=== PATIENT | male | born 1945 | race Caucasian/White ===

== ENCOUNTER 2024-03-02 11:54 | Inpatient (IN) | payer MEDICARE, OTHER ==
[~2024-03-02] VITALS: Ht 177.8 cm; Wt 48.2 kg
[2024-03-02] MEDS ORDERED: 0.9% SODIUM CHLORIDE 10 ML SYRINGE IVP PRN (12:45)
[2024-03-02] MEDS: SODIUM CHLORIDE 0.9% 1,000 ML IV ONE (12:57)
[2024-03-02 13:11] VITALS: PULSE 94; RESP 30; O2SAT 98
[2024-03-02 13:13] LABS: ABG BASE EXCESS 0.9 mmol/L (-2.0-3.0); ABG CARBOXYHEMOGLOBIN 0.2 % (0.5-1.5); ABG HCO3 25.4 mmol/L (21.0-28.0); ABG METHEMOGLOBIN 0.8 % (0.0-1.5); ABG OXYGEN CONTENT 17.9 mL/dL (15.0-23.0); ABG PCO2 38 mmHg (32.0-48.0); ABG PH 7.437 (7.350-7.450); ABG TOTAL HEMOGLOBIN 12.9 G/dL (13.5-17.5); PO2, ARTERIAL BG 115.3 mmHg (83.0-108.0); SOURCE, BLOOD GAS ARTERIAL; TEMPERATURE, FAHRENHEIT, BG 98.5 FAHREN (96.0-98.6)
[2024-03-02 13:14] LABS: O2 DEVICE,BLOOD GAS NON REBREATHER (ROOM AIR); SITE, BLOOD GAS RT BRACHIAL
[2024-03-02 13:17] LABS: BASOPHILS % (AUTO) 0.3 % (0.0-2.0); EOSINOPHILS % (AUTO) 0.3 % (1.0-6.0); HEMOGLOBIN 12.1 g/dL (13.5-17.5); LYMPHOCYTES # (AUTO) 0.5 K/uL (1.0-4.8); LYMPHOCYTES % (AUTO) 4.7 % (22.0-44.0); MEAN CORPUSCULAR HEMOGLOBIN 29.7 pg (26.0-34.0); MEAN CORPUSCULAR HGB CONC 32.6 G/dL (31.0-37.0); MEAN CORPUSCULAR VOLUME 91 fL (80-100); MONOCYTES # (AUTO) 0.4 K/uL (0.1-1.0); MONOCYTES % (AUTO) 3.8 % (2.0-9.0); NEUTROPHILS # (AUTO) 8.9 K/uL (1.8-7.7); PLATELET COUNT (AUTO) 327 K/uL (150-450); RED BLOOD CELL COUNT(AUTO) 4.07 MIL/uL (4.50-5.90); RED CELL DISTRIBUTION WIDTH 14.5 % (11.5-14.5); WHITE BLOOD COUNT (AUTO) 9.8 K/uL (4.5-11.0)
[2024-03-02 13:28] LABS: NEUTROPHILS % (AUTO) 90.9 % (40.0-70.0)
[2024-03-02] MEDS ORDERED: FERR300L PO (13:28)
[2024-03-02] MEDS ORDERED: MIRT-92 PO (13:28)
[2024-03-02] MEDS ORDERED: METH1TAB66 PO (13:28)
[2024-03-02] MEDS ORDERED: SENN-376 PO (13:28)
[2024-03-02] MEDS ORDERED: AZIT-164 PO (13:28)
[2024-03-02] MEDS ORDERED: CARB1TAB35 PO (13:28)
[2024-03-02] MEDS ORDERED: DOCU-385 PO (13:28)
[2024-03-02] MEDS ORDERED: OLAN20TA82 PO (13:28)
[2024-03-02] MEDS ORDERED: GABA-529 PO (13:28)
[2024-03-02] MEDS ORDERED: FAMO20 PO (13:28)
[2024-03-02] MEDS ORDERED: BENZ2TAB84 PO (13:28)
[2024-03-02 13:35] LABS: LACTIC ACID 1.5 mmol/L (0.4-2.0); TROPONIN I-HIGH SENSITIVITY 4 ng/L (<76)
[2024-03-02 13:41] LABS: ANION GAP 7 mmol/L (8-16); CALCIUM, TOTAL 9.2 mg/dL (8.8-10.5); CARBON DIOXIDE 29 mmol/L (22-29); CHLORIDE 106 mmol/L (98-107); CREATININE 0.95 mg/dL (0.60-1.30); GLOMERULAR FILTR. RATE CALC > 60 mL/min (>60); GLUCOSE,RANDOM 105 mg/dL (70-110); POTASSIUM 4.2 mmol/L (3.5-5.1); SODIUM SERUM 142 mmol/L (136-145); UREA NITROGEN, BLOOD 50 mg/dL (7-18)
[2024-03-02] MEDS: CEFEPIME HCL 1 GM in DEXTROSE 5%-WATER 50 ML IV ONE (14:13)
[2024-03-02] MEDS: VANCOMYCIN 1.5 GM/WATER(PEG) 300 ML IV ONE (14:14)
[2024-03-02] MEDS ORDERED: ONDANSETRON HCL 4 MG/2 ML VIAL IVP PRN (14:30)
[2024-03-02] MEDS ORDERED: ALBUTEROL SULFATE 2.5 MG/0.5 ML NEB SOLUTION NEB PRN (14:30)
[2024-03-02] MEDS ORDERED: HYDROCODONE/ACETAMINOPHEN 5-325 MG TABLET PO PRN (14:30)
[2024-03-02] MEDS ORDERED: MAGNESIUM HYDROXIDE SUSPENSION 30 ML UDCUP PO PRN (14:30)
[2024-03-02] MEDS ORDERED: ZOLPIDEM TARTRATE 5 MG TABLET PO PRN (14:30)
[2024-03-02] MEDS ORDERED: ACETAMINOPHEN 325 MG TABLET PO PRN (14:30)
[2024-03-02] MEDS ORDERED: BISACODYL 10 MG RECTAL RECTAL SUPPOSITORY PR PRN (14:30)
[2024-03-02 14:37] LABS: B-TYPE NATRIURETIC PEPTIDE 21 pg/mL (0-100)
[2024-03-02] MEDS: *CLINICAL-LEVOFLOXACIN IVPB DOSING CLINICAL ONE (14:51)
[2024-03-02] MEDS: CLINDAMYCIN 600 MG/D5% WATER 50 ML IV SCH (15:25)
[2024-03-02] MEDS: LEVOFLOXACIN 750 MG/D5% WATER 150 ML IV SCH (15:25)
[2024-03-02] MEDS: HEPARIN SODIUM,PORCINE 5,000 UNITS/ML VIAL SQ SCH (15:36)
[2024-03-02] MEDS: CARBIDOPA/LEVODOPA 25-100 MG TABLET PO SCH (15:36)
[2024-03-02 16:50] VITALS: PULSE 98; RESP 47; O2SAT 97
[2024-03-02 17:58] LABS: COVID AG,FIA SOURCE NASAL SWAB
[2024-03-02 18:18] LABS: SARS-COV2 (COVID) ANTIGEN,FIA Negative (Negative)
[2024-03-02 18:19] LABS: INFLUENZA TYPE A NEGATIVE FOR TYPE A (NEGATIVE); INFLUENZA TYPE B NEGATIVE FOR TYPE B (NEGATIVE)
[2024-03-02 19:05] VITALS: PULSE 103; PULSE 98; RESP 37; RESP 38; O2SAT 98
[2024-03-02] MEDS: ALBUTEROL SULFATE 2.5 MG/0.5 ML NEB SOLUTION NEB SCH (19:30)
[2024-03-02 19:43] LABS: APPEARANCE,URINE HAZY (CLEAR); BILIRUBIN,URINE NEGATIVE (NEGATIVE); COLOR,URINE YELLOW (YELLOW); GLUCOSE, URINE (UA) NEGATIVE (NEGATIVE); KETONES,URINE TRACE mg/dL (NEGATIVE); LEUKOCYTE ESTERASE ,URINE LARGE (NEGATIVE); NITRATE,URINE NEGATIVE (NEGATIVE); OCCULT BLOOD,URINE NEGATIVE (NEGATIVE); PH,URINE 5.5 (5.0-8.0); PROTEIN,URINE 30-70 mg/dL (NEGATIVE); SPECIFIC GRAVITIY, URINE 1.022 (1.003-1.030); UROBILINOGEN,URINE <=1.0 mg/dL (<=1.0)
[2024-03-02 19:49] VITALS: PULSE 109; RESP 38; O2SAT 99
[2024-03-02 19:58] LABS: BACTERIA,URINE Moderate /HPF (None Seen); HYALINE CASTS, URINE 0-2 /LPF (None Seen); MUCUS,URINE Few LPF (None Seen); RBC,URINE 0-2 /HPF (0-2); SQUAMOUS EPITHELIAL CELL,UR Few /LPF (None Seen); WBC,URINE 26-50 /HPF (0-5)
[2024-03-02 20:00] VITALS: BP 126/78; PULSE 102; RESP 27; TEMP 98.3; O2SAT 100
[2024-03-02 20:04] VITALS: PULSE 100; RESP 32; O2SAT 100
[2024-03-02] MEDS: DOCUSATE SODIUM 100 MG CAPSULE PO SCH (21:00)
[2024-03-02] MEDS ORDERED: SODIUM CHLORIDE 0.9% 250 ML IV ONE (22:35)
[2024-03-03] VITALS (18 sets, daily range): BP systolic 104–114; BP diastolic 59–73; PULSE 72–109; RESP 12–34; TEMP 97.3–99.1; O2SAT 92–99
[2024-03-03] MEDS ORDERED: 0.9% SODIUM CHLORIDE 5 ML NEB SOLUTION NEB ONE ×2 (01:36→07:39)
[2024-03-03] MEDS ORDERED: SODIUM CHLORIDE 0.9% 500 ML IV ONE (05:40)
[2024-03-03 07:36] LABS: HEMATOCRIT 35.2 % (41-53); HEMOGLOBIN 11.6 g/dL (13.5-17.5); MEAN CORPUSCULAR HEMOGLOBIN 29.8 pg (26.0-34.0); MEAN CORPUSCULAR HGB CONC 32.9 G/dL (31.0-37.0); MEAN CORPUSCULAR VOLUME 91 fL (80-100); PLATELET COUNT (AUTO) 292 K/uL (150-450); RED BLOOD CELL COUNT(AUTO) 3.89 MIL/uL (4.50-5.90); RED CELL DISTRIBUTION WIDTH 14.3 % (11.5-14.5); WHITE BLOOD COUNT (AUTO) 14.1 K/uL (4.5-11.0)
[2024-03-03 07:43] LABS: SODIUM SERUM 142 mmol/L (136-145)
[2024-03-03 07:44] LABS: ANION GAP 11 mmol/L (8-16); CALCIUM, TOTAL 9.1 mg/dL (8.8-10.5); CARBON DIOXIDE 24 mmol/L (22-29); CHLORIDE 107 mmol/L (98-107); CREATININE 0.89 mg/dL (0.60-1.30); GLOMERULAR FILTR. RATE CALC > 60 mL/min (>60); GLUCOSE,RANDOM 123 mg/dL (70-110); UREA NITROGEN, BLOOD 51 mg/dL (7-18)
[2024-03-03 08:47] LABS: BAND NEUTROPHILS % (MANUAL) 40 % (0-5); LYMPHOCYTES % (MANUAL) 6 % (22-44); MONOCYTES % (MANUAL) 4 % (2-9); SEGMENTED NEUTROPHILS % 50 % (40-70); TOTAL CELLS COUNTED 100
[2024-03-03] MEDS: PANTOPRAZOLE SODIUM 40 MG DR TABLET PO SCH (09:00)
[2024-03-03] MEDS: IPRATROPIUM BROMIDE 0.5 MG/2.5 ML NEB SOLUTION NEB PRN (15:08)
[2024-03-03] MEDS: *CLINICAL-PERIPHERAL PARENTERAL NUTRITION DOSING CLINICAL ONE (16:30)
[2024-03-03] MEDS: PPN SOLUTION 1 EA in AA 4.25%/CALCIUM/LYTES/D5W 1,000 ML IV SCH (22:11)
[2024-03-04] VITALS (13 sets, daily range): BP systolic 105–153; BP diastolic 61–98; PULSE 63–128; RESP 18–20; TEMP 98–98.3; O2SAT 92–96
[2024-03-04 06:50] LABS: HEMATOCRIT 34.9 % (41-53); HEMOGLOBIN 11.5 g/dL (13.5-17.5); MEAN CORPUSCULAR HEMOGLOBIN 29.7 pg (26.0-34.0); MEAN CORPUSCULAR HGB CONC 32.9 G/dL (31.0-37.0); MEAN CORPUSCULAR VOLUME 90 fL (80-100); PLATELET COUNT (AUTO) 264 K/uL (150-450); RED BLOOD CELL COUNT(AUTO) 3.87 MIL/uL (4.50-5.90); RED CELL DISTRIBUTION WIDTH 14.5 % (11.5-14.5); WHITE BLOOD COUNT (AUTO) 11.3 K/uL (4.5-11.0)
[2024-03-04 06:58] LABS: ANION GAP 7 mmol/L (8-16); CALCIUM, TOTAL 9.3 mg/dL (8.8-10.5); CARBON DIOXIDE 28 mmol/L (22-29); CHLORIDE 110 mmol/L (98-107); CREATININE 0.82 mg/dL (0.60-1.30); GLOMERULAR FILTR. RATE CALC > 60 mL/min (>60); GLUCOSE,RANDOM 127 mg/dL (70-110); PHOSPHORUS 2.6 mg/dL (2.5-4.9); POTASSIUM 3.5 mmol/L (3.5-5.1); SODIUM SERUM 145 mmol/L (136-145); UREA NITROGEN, BLOOD 55 mg/dL (7-18)
[2024-03-04] MEDS ORDERED: 0.9% SODIUM CHLORIDE 5 ML NEB SOLUTION NEB ONE ×2 (07:34→13:08)
[2024-03-04 07:42] LABS: BAND NEUTROPHILS % (MANUAL) 4 % (0-5); LYMPHOCYTES % (MANUAL) 6 % (22-44); MONOCYTES % (MANUAL) 5 % (2-9); PLATELET MORPHOLOGY COMMENT GIANT PLTS PRESENT; RBC MORPHOLOGY COMMENT NORMAL RBC MORPH; SEGMENTED NEUTROPHILS % 85 % (40-70); TOTAL CELLS COUNTED 100
[2024-03-04] MEDS: MORPHINE SULFATE 2 MG/ML SYRINGE IVP PRN (09:39)
[2024-03-04] MEDS ORDERED: *CLINICAL-PERIPHERAL PARENTERAL NUTRITION DOSING CLINICAL ONE (10:30)
[2024-03-04] MEDS: SODIUM CHLORIDE IV SCH (22:47)
[2024-03-04] MEDS: POTASSIUM PHOS M BASIC D BASIC IV SCH (22:47)
[2024-03-04] MEDS: PPN IV SCH (22:47)
[2024-03-04] MEDS: [UNRECOGNIZED DRUG - OTHER] IV SCH (22:47)
[2024-03-05] VITALS (14 sets, daily range): BP systolic 108–145; BP diastolic 54–87; PULSE 80–116; RESP 18–25; TEMP 97.1–98.3; O2SAT 91–95
[2024-03-05 06:41] LABS: HEMATOCRIT 35.4 % (41-53); HEMOGLOBIN 11.7 g/dL (13.5-17.5); MEAN CORPUSCULAR HEMOGLOBIN 29.7 pg (26.0-34.0); MEAN CORPUSCULAR HGB CONC 33.1 G/dL (31.0-37.0); MEAN CORPUSCULAR VOLUME 90 fL (80-100); PLATELET COUNT (AUTO) 281 K/uL (150-450); RED BLOOD CELL COUNT(AUTO) 3.95 MIL/uL (4.50-5.90); RED CELL DISTRIBUTION WIDTH 14.6 % (11.5-14.5); WHITE BLOOD COUNT (AUTO) 10.5 K/uL (4.5-11.0)
[2024-03-05 06:53] LABS: ANION GAP 11 mmol/L (8-16); CARBON DIOXIDE 24 mmol/L (22-29); CHLORIDE 110 mmol/L (98-107); CREATININE 0.88 mg/dL (0.60-1.30); GLOMERULAR FILTR. RATE CALC > 60 mL/min (>60); GLUCOSE,RANDOM 122 mg/dL (70-110); PHOSPHORUS 3.7 mg/dL (2.5-4.9); SODIUM SERUM 145 mmol/L (136-145); UREA NITROGEN, BLOOD 54 mg/dL (7-18)
[2024-03-05 06:57] LABS: CALCIUM, TOTAL 9.4 mg/dL (8.8-10.5)
[2024-03-05 07:28] LABS: BAND NEUTROPHILS % (MANUAL) 6 % (0-5); LYMPHOCYTES % (MANUAL) 3 % (22-44); MONOCYTES % (MANUAL) 5 % (2-9); SEGMENTED NEUTROPHILS % 86 % (40-70); TOTAL CELLS COUNTED 100
[2024-03-05] MEDS ORDERED: 0.9% SODIUM CHLORIDE 5 ML NEB SOLUTION NEB ONE ×2 (07:41→12:56)
[2024-03-05] MEDS: [UNRECOGNIZED DRUG - OTHER] IV SCH (23:34)
[2024-03-05] MEDS: SODIUM CHLORIDE IV SCH (23:34)
[2024-03-05] MEDS: PPN IV SCH (23:34)
[2024-03-05] MEDS: POTASSIUM PHOS M BASIC D BASIC IV SCH (23:34)
[2024-03-06] VITALS (11 sets, daily range): BP systolic 106–138; BP diastolic 63–83; PULSE 82–110; RESP 19–28; TEMP 98.1–98.9; O2SAT 92–98
[2024-03-06 07:01] LABS: ALANINE AMINOTRANSFERASE 40 U/L (12-78); ALBUMIN 2.3 g/dL (3.4-5.0); ALKALINE PHOSPHATASE 110 U/L (46-116); ASPARTATE AMINOTRANSFERASE 57 U/L (15-37); BILIRUBIN,TOTAL 0.4 mg/dL (0.1-1.0)
[2024-03-06 09:29] LABS: ANION GAP 14 mmol/L (8-16); CALCIUM, TOTAL 9.5 mg/dL (8.8-10.5); CARBON DIOXIDE 23 mmol/L (22-29); CHLORIDE 114 mmol/L (98-107); CREATININE 0.81 mg/dL (0.60-1.30); GLOMERULAR FILTR. RATE CALC > 60 mL/min (>60); GLUCOSE,RANDOM 119 mg/dL (70-110); PHOSPHORUS 3.8 mg/dL (2.5-4.9); POTASSIUM 3.8 mmol/L (3.5-5.1); SODIUM SERUM 151 mmol/L (136-145); UREA NITROGEN, BLOOD 57 mg/dL (7-18)
[2024-03-06] MEDS: PANTOPRAZOLE SODIUM 40 MG/VIAL IVP SCH (10:37)
[2024-03-07] VITALS (10 sets, daily range): BP systolic 105–133; BP diastolic 69–79; PULSE 85–102; RESP 18–24; TEMP 98.1–98.4; O2SAT 92–98
[2024-03-07] MEDS: [UNRECOGNIZED DRUG - OTHER] IV SCH (00:37)
[2024-03-07] MEDS: POTASSIUM PHOS M BASIC D BASIC IV SCH ×2 (00:37→22:07)
[2024-03-07] MEDS: POTASSIUM ACETATE IV SCH ×2 (00:37→22:07)
[2024-03-07] MEDS: PPN IV SCH ×2 (00:37→22:07)
[2024-03-07] MEDS ORDERED: SODIUM CHLORIDE 0.9% 500 ML IV ONE (02:53)
[2024-03-07 07:09] LABS: ANION GAP 7 mmol/L (8-16); CALCIUM, TOTAL 9.2 mg/dL (8.8-10.5); CARBON DIOXIDE 28 mmol/L (22-29); CHLORIDE 115 mmol/L (98-107); CREATININE 0.83 mg/dL (0.60-1.30); GLOMERULAR FILTR. RATE CALC > 60 mL/min (>60); GLUCOSE,RANDOM 116 mg/dL (70-110); PHOSPHORUS 3.6 mg/dL (2.5-4.9); POTASSIUM 3.3 mmol/L (3.5-5.1); SODIUM SERUM 150 mmol/L (136-145); UREA NITROGEN, BLOOD 56 mg/dL (7-18)
[2024-03-07] MEDS: POTASSIUM CHL 10 MEQ/WATER 50 ML IV SCH (08:49)
[2024-03-07] MEDS: [UNRECOGNIZED DRUG - OTHER] IV SCH (22:07)
[2024-03-08] VITALS (11 sets, daily range): BP systolic 118–125; BP diastolic 64–83; PULSE 83–107; RESP 18–22; TEMP 97.5–98.4; O2SAT 90–95
[2024-03-08 07:26] LABS: ANION GAP 8 mmol/L (8-16); CALCIUM, TOTAL 9.3 mg/dL (8.8-10.5); CARBON DIOXIDE 28 mmol/L (22-29); CHLORIDE 118 mmol/L (98-107); CREATININE 0.83 mg/dL (0.60-1.30); GLOMERULAR FILTR. RATE CALC > 60 mL/min (>60); GLUCOSE,RANDOM 123 mg/dL (70-110); PHOSPHORUS 3.3 mg/dL (2.5-4.9); POTASSIUM 3.7 mmol/L (3.5-5.1); SODIUM SERUM 154 mmol/L (136-145); UREA NITROGEN, BLOOD 50 mg/dL (7-18)
[2024-03-09] VITALS (7 sets, daily range): BP systolic 126–136; BP diastolic 72–87; PULSE 84–99; RESP 18–20; TEMP 97.7–98; O2SAT 91–98
[2024-03-09 07:43] LABS: ANION GAP 7 mmol/L (8-16); CARBON DIOXIDE 27 mmol/L (22-29); CHLORIDE 117 mmol/L (98-107); CREATININE 0.82 mg/dL (0.60-1.30); GLUCOSE,RANDOM 134 mg/dL (70-110); POTASSIUM 3.8 mmol/L (3.5-5.1); SODIUM SERUM 151 mmol/L (136-145); UREA NITROGEN, BLOOD 49 mg/dL (7-18)
[2024-03-09 07:44] LABS: CALCIUM, TOTAL 9.5 mg/dL (8.8-10.5); GLOMERULAR FILTR. RATE CALC > 60 mL/min (>60); PHOSPHORUS 3.4 mg/dL (2.5-4.9)
== END 2024-03-09 16:05 | DRG 133 ==
LOC: EMS 11:54 → EDH 13:30 → ICU 18:00 → 5S 03-03 01:20
PROVIDERS: ADMIT Internal Medicine; ATTEND Internal Medicine
PROC: 5A09357 Assistance with Respiratory Ventilation, Less than 24 Consecutive Hours, Continuous Positive Airway Pressure (ICD-10-PCS; principal; 2024-03-02)
DX: J96.01 Acute respiratory failure with hypoxia (principal); R65.11 Systemic inflammatory response syndrome (SIRS) of non-infectious origin with acute organ dysfunction; J69.0 Pneumonitis due to inhalation of food and vomit; E43 Unspecified severe protein-calorie malnutrition; R64 Cachexia; G20.A1 Parkinson's disease without dyskinesia, without mention of fluctuations; E87.0 Hyperosmolality and hypernatremia; Z20.822 Contact with and (suspected) exposure to COVID-19; E87.1 Hypo-osmolality and hyponatremia; F32.A Depression, unspecified; F20.9 Schizophrenia, unspecified; K21.9 Gastro-esophageal reflux disease without esophagitis; Z68.1 Body mass index [BMI] 19.9 or less, adult
CPT/HCPCS: 36600; 71045; 80048; 80076; 81001; 82805; 83605; 83735; 83880; 84100; 84132; 84145; 84484; 85025; 87040; 87081; 87086; 87481; 87804; 92610; 93005; 93306; 94640; 94660; 94799; 99285; C9113; J0610; J0692; J1644; J1956; J2270; J3475; J3480; J3490; J7030; J7040; J7050; J7060; J7070; J7131; 36415-L1; 36415-TC; J2471; J7613